=== PATIENT | male | born 1950 | race Caucasian/White ===

== ENCOUNTER → 2018-11-28 | Outpatient (REF) | payer MEDICARE ==
[~2018-11-28] MED LIST: ASPI81TA26 PO; INSUHUMDS; INSULIN PUMP; LOSA25TA14; ROSU40TA3
[2018-11-28 14:33] LABS: PERCENT SATURATION 5.5 % (19.7-50.0)
[2018-11-28 14:39] LABS: FOLATE 15.2 NG/ML
== END ==
LOC: M LAB REF 12:51
PROVIDERS: ATTEND Internal Medicine
DX: D50.9 Iron deficiency anemia, unspecified (principal)

== ENCOUNTER → 2018-12-18 | Outpatient (REF) | payer MEDICARE ==
[~2018-12-18] MED LIST changes: +GLYCCAP SL; +IRON65TA2 PO; +OMEP10CASR PO; +PLAV1TAB2 PO; +PURE500C5 PO
[2018-12-18 13:58] LABS: PERCENT SATURATION 91.6 % (19.7-50.0)
== END ==
LOC: M LAB REF 12:33
PROVIDERS: ATTEND Internal Medicine
DX: D50.9 Iron deficiency anemia, unspecified (principal)

== ENCOUNTER 2018-12-23 08:17 | Outpatient (RCR) | payer MEDICARE ==
--- NOTE | 2018-12-18 10:13 | CARECAPL ---
Assessment Account #s: Initial Assessment General Diagnoses: Stent Date of event: Dec 03, 2018 Physician: Jr Rg Collins Allergies: Coded Allergies: No Known Allergies (Unverified , 01/28/18) Date Entered Program: Dec 18, 2018 Risk strat for cardiac event: Low Exercise Date: Dec 18, 2018 Assessment: Initial Assessment Exercise Prescription Plan to educate about cardiac risk factor and disease and to provide a monitored exercise program to build endurance and strength Modalities initiated: Treadmill, Nustep, Arm Aerometer, Dumbells, Recumbent Bike Frequency: 2-3 Duration (Minutes) 30-60 minutes total exercise a day. 6-15 work intervals in minutes. as needed - rest intervals in minutes. Functional Capacity Goal Sustained Metabolic Equivalent of a task (MET) goal of for minutes. Intensity: 3-Moderate Progression (METS) Increase by: .5 METS every: 2-3 sessions Target Heart Rate rest + 35-40 Resistance Training: Yes Reps: 6-8 Hypertension: Yes Hypertension controlled with: Diet Resting 202/88 Peak Exercise BP deferred until 1st exercise Meds see below Medications Scheduled Ascorbic Acid (Vitamin C), 1 CAP PO DAILY, (Reported) Aspirin (Aspirin EC), 81 MG PO DAILY, (Reported) Clopidogrel Bisulfate (Plavix), 75 MG PO DAILY, (Reported) Ferrous Sulfate (Iron), 1 TAB PO BID, (Reported) Insulin Human Lispro (Humalog), ASDIRECTED, (Reported) Losartan Potassium (Losartan Potassium), DAILY, (Reported) Omeprazole (Omeprazole), 20 MG PO DAILY, (Reported) Rosuvastatin Calcium (Rosuvastatin Calcium), DAILY, (Reported) Vit B12/Folic Acid/B6/Aa No.15 (Glycotrol Capsule), 1 CAP SL DAILY, (Reported) Miscellaneous Medications [Insulin Pump], (Reported) Intervention Home exercise: Duration (will discuss 2nd week of exercise) Target Goals Individual exercise Rx (1) BP 140/90 or 130/80 if DM or CKD (1) Aerobic active 30+min 5 days per week (1) Nutrition Date: Dec 18, 2018 Assessment: Initial Assessment Lipid- med/supplement Rosuvastatin Diabetes Diabetes: Yes Diabetes medication insulin Monitor Blood Sugar at home: Yes Weight Management Weight (lbs): 264.2 Height (inches): 70 Waist Circumference (Inches): 55 BMI: 37.9 Weight goal: 200 Special Diet: other (diabetic) Vitamin/Supplements: Vitamin B, Vitamin C Alcohol: special (very rare he states) Alcohol Type: wine Diet Access Tool: Rate your plate Score: 50 Intervention Product Responsibility Liaison Consult: Yes Nurse/patient discussion: Yes Dietary Goals better food choices and smaller protions Diet Class: Yes (will meet with pin puller during program) Referral to Diabetes education: Yes Referral to weight mangement p: Yes Education S&S hypo/hyper glycemia, Relate Diabetes in CAD, Eating Healthy Target goal LDL-C<100 if triglycerides are >200 Non-HDL-C should be <130 (1) LDL-C<70 for high risk patients (4) HbA1c<7% (1) BMI<25 Waist cir<40in M/<35in F (1) Education Date: Dec 18, 2018 Assessment: Initial Assessment Learning Barriers: ready, learn Knowledge Test Score: 10 Family Support: Yes Tobacco use: No (quit in 1971) Quit: >6 months Tobacco Use Smokeless tobacco: No Intervention Referral to smoking cessation: No Individual education and couns: No Tobacco Adjunct: No Education class schedule given: Yes (will educate on exercise days) Education: CAD, Risk factors, med compliance, cardiac A&P, Angina S/S, Sexuality Target Goals Complete cessation of tobacco use (1). Psychosocial Date: Dec 18, 2018 Assessment: Initial Assessment Psych Test (Initial/Discharge) Tool Used: CESD Score: 4 Intervention Physician Consult: No Physician Referral: No Stress Management Class: Yes Uses Stress Management Skills: Yes (will educate on exercise day throughout the program) Education Education: Coping Techniques, S/S depression, Relaxation Techniques Target Goal Assess presence or absence of depression using a valid screening tool (1). Maximize coping skills (2). Positive support system (2). Patient/Program Goal Preventative Medication: Yes Aspirin, Yes Clopidogrel, Yes Beta blockade, Yes Statin/OTR lipid Lowering Fall Risk Assess: No (tug test 7seconds) Provider Assessment Provider Assessment: Proceed with rehab Becky Holder RN Dec 18, 2018 10:07
== END 2018-12-24 ==
LOC: M CR 08:17
PROVIDERS: ATTEND Internal Medicine
DX: Z95.5 Presence of coronary angioplasty implant and graft (principal)

== ENCOUNTER → 2019-01-16 | Outpatient (REF) | payer MEDICARE ==
[2019-01-16 14:04] LABS: PERCENT SATURATION 68.8 % (19.7-50.0)
== END ==
LOC: M LAB REF 12:50
PROVIDERS: ATTEND Internal Medicine
DX: D50.9 Iron deficiency anemia, unspecified (principal)

== ENCOUNTER 2019-01-22 09:49 | Outpatient (RCR) | payer MEDICARE ==
--- NOTE | 2019-01-13 14:53 | CARECAPL ---
Assessment Account #s: Re-Assessment I General Diagnoses: Stent Date of event: Dec 03, 2018 Physician: Jr Rg Collins Allergies: Coded Allergies: No Known Allergies (Unverified , 01/28/18) Date Entered Program: Dec 18, 2018 Risk strat for cardiac event: Low Exercise Date: January 13, 2019 Assessment: Re-Assessment I Exercise Prescription Plan to educate about cardiac risk factor and disease and to provide a monitored exercise program to build endurance and strength Frequency: 2-3 (30-60) Duration (Minutes) 30-60 minutes total exercise a day. 6-15 work intervals in minutes. prn rest intervals in minutes. Functional Capacity Goal Sustained Metabolic Equivalent of a task (MET) goal of 5.0-6.0 for 15-20 minutes. Intensity: 3-Moderate Progression (METS) Increase by: 0.5 METS every:2-3 sessions Angina with ex: No Target Heart Rate rest 35-40 betablocker therapy Resistance Training: Yes Weight (pounds): 3.0 Reps: 6-8 Medications Scheduled Ascorbic Acid (Vitamin C), 1 CAP PO DAILY, (Reported) Aspirin (Aspirin EC), 81 MG PO DAILY, (Reported) Clopidogrel Bisulfate (Plavix), 75 MG PO DAILY, (Reported) Ferrous Sulfate (Iron), 1 TAB PO BID, (Reported) Insulin Human Lispro (Humalog), ASDIRECTED, (Reported) Losartan Potassium (Losartan Potassium), DAILY, (Reported) Omeprazole (Omeprazole), 20 MG PO DAILY, (Reported) Rosuvastatin Calcium (Rosuvastatin Calcium), DAILY, (Reported) Vit B12/Folic Acid/B6/Aa No.15 (Glycotrol Capsule), 1 CAP SL DAILY, (Reported) Miscellaneous Medications [Insulin Pump], (Reported) Current BP 130/78 Med Change: No Intervention Home exercise: Type (walking, hand weights, join local gym) Resistance Training: Yes Education: Self pulse, Ex safety, S/S to report, Low NA diet, BP medication, RP E Scale, Equipment orientation, warm up/cool down, Understand BP, Physical Active Education Goals Met: No (progressing) Target Goals Individual exercise Rx (1) BP 140/90 or 130/80 if DM or CKD (1) Aerobic active 30+min 5 days per week (1) Nutrition Date: January 13, 2019 Assessment: Re-Assessment I Med Change: No Diabetes Diabetes: No Monitor Blood Sugar at home: No Current Weight (pounds): 258 Weight Goal 200 Intervention Director Of Sales Marketing Consult: Yes (will refer) Nurse/patient discussion: Yes Dietary Goals smaller portions and better choices Diet Class: No (will see high pressure kettle operator this program) Education Eating Healthy Education Goals Met: No (progressing toward goals) Target goal LDL-C<100 if triglycerides are >200 Non-HDL-C should be <130 (1) LDL-C<70 for high risk patients (4) HbA1c<7% (1) BMI<25 Waist cir<40in M/<35in F (1) Education Date: January 13, 2019 Assessment: Re-Assessment I Intervention Education class schedule given: Yes Education: CAD, Risk factors, med compliance, cardiac A&P, Angina S/S, Sexuality Education Goals Met: No (progressing toward goals) Target Goals Complete cessation of tobacco use (1). Psychosocial Date: January 13, 2019 Assessment: Re-Assessment I Stress Management Class: Yes Uses Stress Management Skills: Yes Education Education: Coping Techniques, Relaxation Techniques Education Goals Met: No (progressing toward goals) Target Goal Assess presence or absence of depression using a valid screening tool (1). Maximize coping skills (2). Positive support system (2). Provider Assessment Session Number: 5 Provider Assessment: No changes Becky Holder RN January 13, 2019 14:53
== END 2019-01-24 ==
LOC: M CR 09:49
PROVIDERS: ATTEND Internal Medicine
DX: Z98.61 Coronary angioplasty status (principal)

== ENCOUNTER 2019-01-24 10:38 | Day surgery (SDC) | payer MEDICARE ==
[~2019-01-24] VITALS: Ht 172.7 cm; Wt 112.0 kg
[~2019-01-24 10:38] MED LIST changes: +NS 1,000 ML IV SCH
[2019-01-24] MEDS ORDERED: LIDOCAINE 2% INJ 100 MG/5 ML SDV (FOR ANES.) As Ordered ONE (11:57)
[2019-01-24] MEDS ORDERED: PROPOFOL 200 MG/20 ML VIAL As Ordered ONE ×2 (11:57→12:27)
--- NOTE | 2019-01-24 12:18 | ROOR ---
Patient Name: Tarun Chavarria Procedure Date: 01/24/2019 11:57 AM Date of : 1950 Age: 68 Room: [facility] Gender: Male Note Status: Finalized Procedure: Upper GI endoscopy + Small bowel bx. Indications: Iron deficiency anemia Providers: Ayush Lowe MD Referring MD: TIFFANIE VARGAS JR, MD Requesting Provider: Medicines: Monitored Anesthesia Care Complications: No immediate complications. Procedure: Pre-Anesthesia Assessment: - The heart rate, respiratory rate, oxygen saturations, blood pressure, adequacy of pulmonary ventilation, and response to care were monitored throughout the procedure. The Endoscope was introduced through the mouth, and advanced to the second part of duodenum. The upper GI endoscopy was accomplished without difficulty. The patient tolerated the procedure well. Findings: The Z-line was variable and was found 39 cm from the incisors. Multiple biopsies were obtained with cold forceps for evaluation to rule out Ding's Esophagus randomly at the gastroesophageal junction. Localized mildly erythematous mucosa without bleeding was found in the gastric antrum. Biopsies were taken with a cold forceps for Helicobacter pylori testing. Two non-bleeding superficial gastric ulcers with no stigmata of bleeding were found in the gastric fundus. The exam of the duodenum was otherwise normal. Biopsies for histology were taken with a cold forceps in the first portion of the duodenum for evaluation of celiac disease. The exam was otherwise without abnormality. Impression: - Z-line variable, 39 cm from the incisors. - Erythematous mucosa in the antrum. Biopsied. - Non-bleeding gastric ulcers with no stigmata of bleeding. - The examination was otherwise normal. - Multiple biopsies were obtained at the gastroesophageal junction. - Biopsies were taken with a cold forceps for evaluation of celiac disease. - The examination was otherwise normal. Recommendation: - Patient has a contact number available for emergencies. The signs and symptoms of potential delayed complications were discussed with the patient. Return to normal activities tomorrow. Written discharge instructions were provided to the patient. - Discharge patient to home. - Await pathology results. - Use Prilosec (omeprazole) 40 mg PO BID. - Use sucralfate tablets 1 gram PO BID. - Telephone GI clinic for pathology results in 1 week. - Return to referring physician. - The findings and recommendations were discussed with the patient's family. Ayush Lowe MD Ayush Lowe MD 01/24/2019 12:17:37 PM Electronically signed by Ayush Lowe MD Number of Addenda: 0 Note Initiated On: 01/24/2019 11:57 AM Estimated Blood Loss: Estimated blood loss: none.
--- NOTE | 2019-01-24 12:50 | ROOR ---
Patient Name: Tarun Chavarria Procedure Date: 01/24/2019 12:16 PM Date of : 1950 Age: 68 Room: [facility] Gender: Male Note Status: Finalized Procedure: Total Colonoscopy to Cecum + Cold/Hot Snare Polypectomy + Hemoclips Indications: Iron deficiency anemia, Unexplained iron deficiency anemia Providers: Ayush Lowe MD Referring MD: TIFFANIE VARGAS JR, MD Requesting Provider: Medicines: Monitored Anesthesia Care Complications: No immediate complications. Procedure: Pre-Anesthesia Assessment: - The heart rate, respiratory rate, oxygen saturations, blood pressure, adequacy of pulmonary ventilation, and response to care were monitored throughout the procedure. The Colonoscope was introduced through the anus and advanced to the cecum, identified by appendiceal orifice and ileocecal valve. The colonoscopy was performed without difficulty. The patient tolerated the procedure well. The quality of the bowel preparation was excellent. Findings: The perianal and digital rectal examinations were normal. Non-bleeding internal hemorrhoids were found during retroflexion. The hemorrhoids were small and Grade I (internal hemorrhoids that do not prolapse). A medium polyp was found in the cecum. The polyp was sessile. The polyp was removed with a cold snare. Resection and retrieval were complete. A medium polyp was found in the ascending colon. The polyp was sessile. The polyp was removed with a cold snare. Resection and retrieval were complete. To prevent bleeding after the polypectomy, one hemostatic clip was successfully placed (MR conditional). There was no bleeding at the end of the procedure. Two sessile polyps were found in the transverse colon. The polyps were small in size. These polyps were removed with a cold snare. Resection and retrieval were complete. A medium polyp was found in the rectum. The polyp was sessile. The polyp was removed with a hot snare. Resection and retrieval were complete. To prevent bleeding after the polypectomy, one hemostatic clip was successfully placed (MR conditional). There was no bleeding at the end of the procedure. One medium-sized localized angioectasia without bleeding was found in the cecum. The exam was otherwise without abnormality on direct and retroflexion views. Impression: - Non-bleeding internal hemorrhoids. - One medium polyp in the cecum, removed with a cold snare. Resected and retrieved. - One medium polyp in the ascending colon, removed with a cold snare. Resected and retrieved. Clip (MR conditional) was placed. - Two small polyps in the transverse colon, removed with a cold snare. Resected and retrieved. - One medium polyp in the rectum, removed with a hot snare. Resected and retrieved. Clip (MR conditional) was placed. - One non-bleeding colonic angioectasia. - The examination was otherwise normal on direct and retroflexion views. - The exam was otherwise normal to the cecum. Recommendation: - Patient has a contact number available for emergencies. The signs and symptoms of potential delayed complications were discussed with the patient. Return to normal activities tomorrow. Written discharge instructions were provided to the patient. - High fiber diet. - Discharge patient to home. - Resume Plavix (clopidogrel) at prior dose today. - Await pathology results. - Telephone GI clinic for pathology results in 1 week. - Check Portal Online for Path Results.([email or web address] - Repeat colonoscopy in 3 years for surveillance based on pathology results. - The findings and recommendations were discussed with the patient's family. Ayush Lowe MD Ayush Lowe MD 01/24/2019 12:49:42 PM Electronically signed by Ayush Lowe MD Number of Addenda: 0 Note Initiated On: 01/24/2019 12:16 PM Estimated Blood Loss: Estimated blood loss: none.
[2019-01-24 13:20] VITALS: BP 147/78
== END 2019-01-24 13:22 | disposition home or self-care (01) ==
LOC: M OPP 10:38
PROVIDERS: ATTEND Internal Medicine Gastroenterology
DX: D12.0 Benign neoplasm of cecum (principal); D12.2 Benign neoplasm of ascending colon; D12.3 Benign neoplasm of transverse colon; D12.8 Benign neoplasm of rectum; K55.20 Angiodysplasia of colon without hemorrhage; K64.0 First degree hemorrhoids; K22.8 Other specified diseases of esophagus; K25.9 Gastric ulcer, unspecified as acute or chronic, without hemorrhage or perforation; K29.70 Gastritis, unspecified, without bleeding; D50.9 Iron deficiency anemia, unspecified

== ENCOUNTER 2019-02-05 10:18 | Outpatient (RCR) | payer MEDICARE ==
[~2019-02-05 10:18] MED LIST changes: -NS 1,000 ML IV SCH
--- NOTE | 2019-02-10 14:54 | CARECAPL ---
Assessment Account #s: Re-Assessment II General Diagnoses: Stent Date of event: Dec 03, 2018 Physician: Jr Rg Collins Allergies: Coded Allergies: No Known Allergies (Unverified , 01/28/18) Date Entered Program: Dec 18, 2018 Risk strat for cardiac event: Low Exercise Date: Feb 10, 2019 Assessment: Re-Assessment II Exercise Prescription Plan TO EDUCATE ABOUT CARDIAC DISEASE AND RISKS FACTORS AND BUILD ENDURANCE THROUGH MONITORED EXERCISE PROGRAM Modalities initiated: Treadmill (METS=3.91/RPEE=3.5), Nustep (METS=7/RPE=3), Arm Aerometer (METS=2.8/RPE=3), Dumbells (4#/RPE=3), Recumbent Bike (METS=3.5/RPE=3) Frequency: 3 Duration (Minutes) 30-60 minutes total exercise a day. 10-15 work intervals in minutes. 5 MIN PRN rest intervals in minutes. Functional Capacity Goal Sustained Metabolic Equivalent of a task (MET) goal of 5.0-6.0 for 15-20 minutes. Intensity: 3-Moderate Progression (METS) Increase by: 0.5 METS every: 5 sessions TOLERATED Angina with ex: No Target Heart Rate REST +35-40 BETA REESE THERAPY Resistance Training: Yes Weight (pounds): 4 Reps: 12-15 Hypertension: Yes Hypertension controlled with: Medication Resting 158/80 Peak Exercise BP 160/86 Medications Scheduled Ascorbic Acid (Vitamin C), 1 CAP PO DAILY, (Reported) Aspirin (Aspirin EC), 81 MG PO DAILY, (Reported) Clopidogrel Bisulfate (Plavix), 75 MG PO DAILY, (Reported) Ferrous Sulfate (Iron), 1 TAB PO BID, (Reported) Insulin Human Lispro (Humalog), ASDIRECTED, (Reported) Losartan Potassium (Losartan Potassium), DAILY, (Reported) Omeprazole (Omeprazole), 20 MG PO DAILY, (Reported) Rosuvastatin Calcium (Rosuvastatin Calcium), DAILY, (Reported) Vit B12/Folic Acid/B6/Aa No.15 (Glycotrol Capsule), 1 CAP SL DAILY, (Reported) Miscellaneous Medications [Insulin Pump], (Reported) Current BP 144/74 Med Change: No Intervention Education: Self pulse, Ex safety, S/S to report, Low NA diet, BP medication, RPE Scale, Equipment orientation, warm up/cool down, Understand BP, Physical Active Target Goals Individual exercise Rx (1) BP 140/90 or 130/80 if DM or CKD (1) Aerobic active 30+min 5 days per week (1) Nutrition Date: Feb 10, 2019 Assessment: Re-Assessment II Lipid- med/supplement CRESTOR Med Change: No Diabetes Diabetes: Yes (PATIENT HAS INSULIN PUMP) Fasting Blood Sugar: 180 Diabetes medication INSULIN PUMP (HUMALOG) Monitor Blood Sugar at home: Yes Medication Change: No Weight Management Weight (lbs): 255 Weight goal: 200 Special Diet: low salt, low-fat Vitamin/Supplements: Vitamin B, Vitamin C Current Weight (pounds): 255 Weight Goal 200 Intervention Stem Shaper Consult: Yes (will see guitar repair technician during program) Nurse/patient discussion: Yes Dietary Goals TO MAKE HEART HEALTHY CHOICES AND REDUCE PORTION SIZE Diet Class: No Referral to Diabetes education: No Referral to lipid clinic: No Referral to weight mangement p: No Education S&S hypo/hyper glycemia, Relate Diabetes in CAD, Eating Healthy Target goal LDL-C<100 if triglycerides are >200 Non-HDL-C should be <130 (1) LDL-C<70 for high risk patients (4) HbA1c<7% (1) BMI<25 Waist cir<40in M/<35in F (1) Education Date: Feb 10, 2019 Assessment: Re-Assessment II Learning Barriers: ready Family Support: Yes Tobacco use: No Tobacco Use Smokeless tobacco: No Intervention Referral to smoking cessation: No Individual education and couns: No Tobacco Adjunct: No Education class schedule given: No Attended education classes: No Education: CAD, Risk factors, med compliance, cardiac A&P, Angina S/S, Sexuality Target Goals Complete cessation of tobacco use (1). Psychosocial Date: Feb 10, 2019 Assessment: Re-Assessment II Intervention Physician Consult: No Physician Referral: No Med Change: No Stress Management Class: No Uses Stress Management Skills: Yes Education Education: Coping Techniques, S/S depression, Relaxation Techniques Target Goal Assess presence or absence of depression using a valid screening tool (1). Maximize coping skills (2). Positive support system (2). Patient/Program Goal Preventative Medication: Yes Aspirin, Yes Clopidogrel, Yes Statin/OTR lipid Lowering Fall Risk Assess: Yes (NOT A FALL RISK) Provider Assessment Session Number: 9 Provider Assessment: Proceed with rehab Ayush Nice RN Feb 10, 2019 14:54
--- NOTE | 2019-02-24 15:40 | CARECAPL ---
Assessment Account #s: Re-Assessment II (discharge assessment) General Date of event: Dec 03, 2008 Physician: Jr Rg Collins Allergies: Coded Allergies: No Known Allergies (Unverified , 01/28/18) Date Entered Program: Dec 18, 2018 Risk strat for cardiac event: Low Exercise Assessment: Followup/Discharge Exercise Prescription Modalities initiated: Treadmill, Nustep, Arm Aerometer, Dumbells, Recumbent Bike Frequency: 1-2 Duration (Minutes) minutes total exercise a day. work intervals in minutes. rest intervals in minutes. Functional Capacity Goal Sustained Metabolic Equivalent of a task (MET) goal of for minutes. Progression (METS) Increase by: METS every: sessions Angina with ex: No Resistance Training: Yes Weight (pounds): 4 Reps: 6-8 Hypertension: Yes Hypertension controlled with: Diet Resting 158/80 Peak Exercise BP 160/86 Meds see below Medications Scheduled Ascorbic Acid (Vitamin C), 1 CAP PO DAILY, (Reported) Aspirin (Aspirin EC), 81 MG PO DAILY, (Reported) Clopidogrel Bisulfate (Plavix), 75 MG PO DAILY, (Reported) Ferrous Sulfate (Iron), 1 TAB PO BID, (Reported) Insulin Human Lispro (Humalog), ASDIRECTED, (Reported) Losartan Potassium (Losartan Potassium), DAILY, (Reported) Omeprazole (Omeprazole), 20 MG PO DAILY, (Reported) Rosuvastatin Calcium (Rosuvastatin Calcium), DAILY, (Reported) Vit B12/Folic Acid/B6/Aa No.15 (Glycotrol Capsule), 1 CAP SL DAILY, (Reported) Miscellaneous Medications [Insulin Pump], (Reported) Intervention Home exercise: Type (walking, join local gym), Frequency (5-7), Duration (30-60 minutes) Resistance Training: Yes Education: Self pulse, Ex safety, S/S to report, Low NA diet, BP medication, RPE Scale, Equipment orientation, warm up/cool down, Understand BP, Physical Active Education Goals Met: No (didn't complete program) Target Goals Individual exercise Rx (1) BP 140/90 or 130/80 if DM or CKD (1) Aerobic active 30+min 5 days per week (1) Nutrition Date: Feb 24, 2019 Assessment: Followup/Discharge Diabetes Diabetes: Yes (didn't finish program) Diet Access Tool: Rate your plate (not completed) Education Eating Healthy Education Goals Met: No (didn't complete program) Target goal LDL-C<100 if triglycerides are >200 Non-HDL-C should be <130 (1) LDL-C<70 for high risk patients (4) HbA1c<7% (1) BMI<25 Waist cir<40in M/<35in F (1) Education Date: Feb 24, 2019 Assessment: Followup/Discharge Education Goals Met: No (didn't complete program) Target Goals Complete cessation of tobacco use (1). Psychosocial Date: Feb 24, 2019 Assessment: Followup/Discharge Psych Test (Initial/Discharge) Tool Used: CESD (not completed) Education Goals Met: No Target Goal Assess presence or absence of depression using a valid screening tool (1). Maximize coping skills (2). Positive support system (2). Provider Assessment Session Number: 9 Provider Assessment: Please add/change: (d/c from program d/t poor attendance) Becky Holder RN Feb 24, 2019 15:40
== END 2019-02-23 ==
LOC: M CR 10:18
PROVIDERS: ATTEND Internal Medicine
DX: Z98.61 Coronary angioplasty status (principal)

== ENCOUNTER → 2019-02-12 | Outpatient (REF) | payer MEDICARE | LOC: M LAB REF 16:57 | PROVIDERS: ATTEND Internal Medicine | DX: Z01.89 Encounter for other specified special examinations (principal) ==

== ENCOUNTER → 2020-06-04 | Outpatient (CLI) | payer MEDICARE ==
[~2020-06-04] MED LIST changes: +FAMO40TA3 PO; -ROSU40TA3; +ROSU40TA4
== END ==
LOC: M LABSMTC 10:57
PROVIDERS: ATTEND Anesthesiology
DX: Z01.812 Encounter for preprocedural laboratory examination (principal); Z20.828 Contact with and (suspected) exposure to other viral communicable diseases
CPT/HCPCS: C9803; U0003

== ENCOUNTER 2020-06-09 12:43 | Day surgery (SDC) | payer MEDICARE ==
[~2020-06-09] VITALS: Ht 177.8 cm; Wt 116.1 kg
[~2020-06-09 12:43] MED LIST changes: +NS 1,000 ML IV ONE
--- NOTE | 2020-06-09 14:46 | ROOR ---
Patient Name: Tarun Chavarria Procedure Date: 06/09/2020 2:14 PM Date of : 1950 Age: 70 Room: [facility] Gender: Male Note Status: Finalized Procedure: Upper Endoscopy + Biopsies Indications: Heartburn, Exclusion of Ding's esophagus Providers: Ayush Lowe MD Referring MD: TIFFANIE VARGAS JR, MD Requesting Provider: Medicines: Monitored Anesthesia Care Complications: No immediate complications. Procedure: Pre-Anesthesia Assessment: - The heart rate, respiratory rate, oxygen saturations, blood pressure, adequacy of pulmonary ventilation, and response to care were monitored throughout the procedure. The Endoscope was introduced through the mouth, and advanced to the second part of duodenum. The upper GI endoscopy was accomplished without difficulty. The patient tolerated the procedure well. Findings: The Z-line was regular and was found 40 cm from the incisors. Multiple biopsies were obtained with cold forceps for evaluation to rule out Ding's Esophagus randomly at the gastroesophageal junction. A small hiatal hernia was present. Localized mild inflammation characterized by erosions was found on the greater curvature of the stomach. Biopsies were taken with a cold forceps for Helicobacter pylori testing. The exam of the duodenum was otherwise normal. Impression: - Z-line regular, 40 cm from the incisors. - Small hiatal hernia. - Mucosal changes suspicious for gastritis. Biopsied. - Multiple biopsies were obtained at the gastroesophageal junction. - The examination was otherwise normal. Recommendation: - Patient has a contact number available for emergencies. The signs and symptoms of potential delayed complications were discussed with the patient. Return to normal activities tomorrow. Written discharge instructions were provided to the patient. - Resume previous diet. - Discharge patient to home. - Follow an antireflux regimen. - Continue present medications. - Await pathology results. - Telephone GI clinic for pathology results in 1 week. - Return to referring physician. - The findings and recommendations were discussed with the patient. Ayush Lowe MD Ayush Lowe MD 06/09/2020 2:46:11 PM Electronically signed by Ayush Lowe MD Number of Addenda: 0 Note Initiated On: 06/09/2020 2:14 PM Estimated Blood Loss: Estimated blood loss: none.
--- NOTE | 2020-06-09 14:50 | ROOR ---
Patient Name: Tarun Chavarria Procedure Date: 06/09/2020 2:15 PM Date of : 1950 Age: 70 Room: [facility] Gender: Male Note Status: Finalized Procedure: Total Colonoscopy to Cecum Indications: High risk colon cancer surveillance: Personal history of adenoma with villous component Providers: Ayush Lowe MD Referring MD: TIFFANIE VARGAS JR, MD Requesting Provider: Medicines: Monitored Anesthesia Care Complications: No immediate complications. Procedure: Pre-Anesthesia Assessment: - The heart rate, respiratory rate, oxygen saturations, blood pressure, adequacy of pulmonary ventilation, and response to care were monitored throughout the procedure. The Colonoscope was introduced through the anus and advanced to the cecum, identified by appendiceal orifice and ileocecal valve. The colonoscopy was performed without difficulty. The patient tolerated the procedure well. The quality of the bowel preparation was excellent. Findings: The perianal and digital rectal examinations were normal. Non-bleeding internal hemorrhoids were found during retroflexion. The hemorrhoids were small and Grade I (internal hemorrhoids that do not prolapse). No other significant abnormalities were identified in a careful examination of the remainder of the colon. The exam was otherwise without abnormality on direct and retroflexion views. Impression: - Non-bleeding internal hemorrhoids. - The examination was otherwise normal on direct and retroflexion views. - No specimens collected. - The exam was otherwise normal to the cecum. Recommendation: - Patient has a contact number available for emergencies. The signs and symptoms of potential delayed complications were discussed with the patient. Return to normal activities tomorrow. Written discharge instructions were provided to the patient. - High fiber diet. - Discharge patient to home. - Continue present medications. - Repeat colonoscopy in 5 years for surveillance. - Return to referring physician. - The findings and recommendations were discussed with the patient. Ayush Lowe MD Ayush Lowe MD 06/09/2020 2:49:53 PM Electronically signed by Ayush Lowe MD Number of Addenda: 0 Note Initiated On: 06/09/2020 2:15 PM Estimated Blood Loss: Estimated blood loss: none.
[2020-06-09 15:20] VITALS: BP 136/67
== END 2020-06-09 15:31 | disposition home or self-care (01) ==
LOC: M OPP 12:43
PROVIDERS: ATTEND Internal Medicine Gastroenterology
DX: Z12.11 Encounter for screening for malignant neoplasm of colon (principal); Z86.010 Personal history of colon polyps; R12 Heartburn; K64.0 First degree hemorrhoids; D13.0 Benign neoplasm of esophagus; D13.1 Benign neoplasm of stomach; K44.9 Diaphragmatic hernia without obstruction or gangrene; K31.89 Other diseases of stomach and duodenum; E78.5 Hyperlipidemia, unspecified; E10.9 Type 1 diabetes mellitus without complications; G47.33 Obstructive sleep apnea (adult) (pediatric); Z79.82 Long term (current) use of aspirin; Z79.4 Long term (current) use of insulin; Z79.899 Other long term (current) drug therapy; Z95.5 Presence of coronary angioplasty implant and graft
CPT/HCPCS: 43239; 88305; G0105

== ENCOUNTER → 2020-11-04 | Outpatient (REF) | payer MEDICARE ==
[~2020-11-04] MED LIST changes: -NS 1,000 ML IV ONE
[2020-11-04 12:37] LABS: PERCENT SATURATION 6.1 % (19.7-50.0)
== END ==
LOC: M LAB REF 11:54
PROVIDERS: ATTEND Internal Medicine
DX: R06.02 Shortness of breath (principal); D50.9 Iron deficiency anemia, unspecified

== ENCOUNTER → 2020-11-18 | Outpatient (REF) | payer MEDICARE | LOC: M LAB REF 11:10 | PROVIDERS: ATTEND Internal Medicine | DX: D64.9 Anemia, unspecified (principal) ==

== ENCOUNTER → 2020-12-09 | Outpatient (REF) | payer MEDICARE | LOC: M LAB REF 11:46 | PROVIDERS: ATTEND Internal Medicine | DX: D64.9 Anemia, unspecified (principal) ==

== ENCOUNTER → 2021-01-20 | Outpatient (REF) | payer MEDICARE ==
[2021-01-20 18:09] LABS: PERCENT SATURATION 13.7 % (19.7-50.0)
== END ==
LOC: M LAB REF 16:51
PROVIDERS: ATTEND Internal Medicine
DX: D64.9 Anemia, unspecified (principal); I10 Essential (primary) hypertension